=== PATIENT | female | born 1960 | race African-American/Black ===

== ENCOUNTER 2017-12-14 08:13 | Day surgery (SDC) | payer OTHER ==
[2017-12-09 10:37] VITALS: BMI 60.2
[2017-12-14] MEDS ORDERED: PROPOFOL 20 ML ONE ×2 (08:22)
[2017-12-14 10:05] VITALS: TEMP 97.9
[2017-12-14 10:25] VITALS: BP 140/75; PULSE 92
--- NOTE | 2017-12-16 12:50 | PATH ---
Surgical Pathology Report Patient Name: ALEJANDRA BERG [facility]. Rec. #: [id number] /Age/Gender: 1960 (Age: 57) / F Account: [id number] Location: [facility] Taken: 12/14/2017 Received: 12/14/2017 Reported: 12/16/2017 Physicians: Sunny Valdez M.D. Specimen(s) Received POLYP SIGMOID Clinical History Family history of colon cancer, history of colonic polyps Postoperative diagnosis: Polyp Final Diagnosis SIGMOID, POLYP, BIOPSY: HYPERPLASTIC POLYP. Electronically Signed Mily Ayala M.D. Gross Description Received in formalin, labeled "polyp of sigmoid" is a trejo, irregular portion of soft tissue measuring 0.5 cm. in greatest dimension. The specimen is submitted in toto in one cassette. 12/14/201712/14/2017
== END 2017-12-14 10:35 | disposition home or self-care (01) ==
LOC: FASU-ENDO 08:13
PROVIDERS: ATTEND Internal Medicine Gastroenterology
PROC: 0DBN8ZX Excision of Sigmoid Colon, Via Natural or Artificial Opening Endoscopic, Diagnostic (ICD-10-PCS; principal; 2017-12-14 09:27)
DX: Z86.010 Personal history of colon polyps (principal); K63.5 Polyp of colon; K57.30 Diverticulosis of large intestine without perforation or abscess without bleeding
CPT/HCPCS: 84703; 88305-TC